=== PATIENT | male | born 1940 | race Caucasian/White ===

== ENCOUNTER 2020-08-10 11:29 | Emergency (ER) | payer MEDICARE, SELFPAY ==
[2020-08-10 11:39] VITALS: BP 132/74; PULSE 77; O2SAT 96
[2020-08-10 11:45] VITALS: BP 132/71; PULSE 79; RESP 12; TEMP 35.7; O2SAT 100; BMI 29.0
--- NOTE | 2020-08-10 11:47 | DI.US.S_ITS ---
PROCEDURE: US SCROTUM INDICATIONS: SEVERE RIGHT TESTICULAR PAIN FOR 1 WEEK. TECHNIQUE: Real-time scanning was performed of the scrotum and testicles, with image documentation. Color and pulse Doppler interrogation was performed of both testicles. COMPARISON: None. FINDINGS: Right: Testicle is asymmetrically enlarged in size at 2.4 x 4.2 x 4.7 cm, and mildly heterogeneous in echotexture. Epididymis is asymmetric in overall size measuring up to 1.4 cm and morphology. No significant hydrocele or varicoceles. Overlying scrotal skin is normal in thickness. Left: Testicle is normal in size at 2.0 x 2.7 x 3.7 cm, and homogeneous in echotexture. Epididymis is normal in overall size measuring up to 0.9 cm in thickness and normal in morphology. No significant hydrocele or varicoceles. Overlying scrotal skin is normal in thickness. Doppler: Color and pulse Doppler demonstrate asymmetric elevated right-sided arterial flow in the testicle and epididymis. IMPRESSION: Asymmetric hyperemia and asymmetric enlargement of both the right testicle and right epididymis indicates likelihood of significant epididymo-orchitis. No discrete mass lesion is found. Dictated by: Ravindra Castaneda M.D. on 08/10/2020 at 12:38 Approved by: Ravindra Castaneda M.D. on 08/10/2020 at 12:46
--- NOTE | 2020-08-10 12:10 | ED.MALEGU ---
HPI - Male Genitourinary General Chief complaint: Urogenital-Male Stated complaint: right swollen testicle Time Seen by Provider: 08/10/20 11:30 Source: patient Mode of arrival: Ambulatory Limitations: no limitations History of Present Illness HPI Narrative: 79M nonsmoker with noncontributory medical history presents today and the chief complaint of R testicle pain and swelling for the last week. He states that is quite tender with any motion and seems to improve he does not move. He denies any history of the same. He denies any dysuria, frequency or urgency. He denies any penile discharge or blood. He is otherwise well and free of complaint denies systemic findings such as nausea, vomiting, fever or chills. He denies exposure to any persons known to have COVID MD Complaint: testicle pain and testicle swelling Onset (ago): day(s) Duration: constant Location: right testicle Severity: severe Quality: aching Relieving factors: rest Exacerbating factors: movement Associated symptoms: Reports denies other symptoms Related Data Previous Rx's Medication Instructions Recorded sulfamethoxazole-trimethoprim 1 tab PO BID 10 Days #20 tab 08/10/20 [Bactrim DS] Allergies Allergy/AdvReac Type Severity Reaction Status Date / Time No Known Drug Allergies Allergy Verified 08/10/20 11:48 Review of Systems Constitutional Constitutional: Denies chills, Denies fatigue, Denies fever(s), Denies frequent falls, Denies lethargy and Denies weakness Eyes Eyes: Denies change in vision, Denies eye discharge, Denies irritation and Denies loss of vision ENT Ears, Nose, Mouth, and Throat: Denies change in voice, Denies dizziness, Denies neck pain, Denies sore throat and Denies throat swelling Cardiovascular Cardiovascular: Denies chest pain, Denies irregular heart rhythm, Denies lightheadedness, Denies palpitations, Denies dyspnea, Denies dyspnea on exertion and Denies orthopnea Respiratory Respiratory: Denies cough, Denies dyspnea, Denies dyspnea on exertion and Denies wheezing Gastrointestinal Gastrointestinal: Denies abdominal pain, Denies change in bowel habits, Denies diarrhea, Denies nausea and Denies vomiting Genitourinary Genitourinary: Reports testicular mass and Reports testicular pain Musculoskeletal Musculoskeletal: Denies neck pain and Denies numbness Integumentary/Breasts Skin/Breast: Denies pruritus, Denies erythema, Denies rash and Denies wounds Neurologic Neurologic: Denies behavioral changes, Denies confusion, Denies dizziness, Denies frequent falls, Denies loss of vision, Denies numbness and Denies weakness Psychiatric Psychiatric: Denies anxiety, Denies behavioral changes, Denies confusion, Denies depression, Denies homicidal ideation and Denies suicidal ideation Endocrine Endocrine: Denies fatigue, Denies flushing and Denies palpitations Hematologic/Lymphatic Hematologic/Lymphatic: Denies easy bruising Allergic/Immunologic Allergic/Immunologic: Denies urticaria, Denies throat swelling and Denies wheezing Patient History Social History Smoking Status: Former smoker Smoking Status: Former smoker Substance Use Type: does not use and marijuana Exam Narrative Exam Narrative: GEN: AOx3 and in mild distress EYES: Pupils are equal, round, and reactive to light and accommodation. Extraoccular muscles are intact bilaterally. There is no subconjunctival hemorrhage or exudate. CHEST: Lungs are clear to auscultation bilaterally and free of wheezes, rales, or rhonchi. Heart rate is regular rhythm, there are no murmurs, clicks, rubs, or gallops. There is no chest wall tenderness. ABD: Abdomen is soft and nontender. There is no guarding or rebound. Bowel sounds are normal in all 4 quadrants. There is no mass or organomegaly. : swollen render right testicle, no erythema. No penile lesions or drainage. EXT: Full painless ROM of all extremities with no loss of sensation or strength. SKIN: Warm, pink, and dry. No erythema or rash Initial Vital Signs Initial Vital Signs: Vital Signs Pulse Rate 77 08/10/20 11:39 Blood Pressure 132/74 08/10/20 11:39 Pulse Oximetry 96 08/10/20 11:39 Course Orders Ordered: ED Orders 08/10/20 11:47 US scrotum Stat 08/10/20 11:48 Urinalysis and Microscopic Stat Vital Signs Vital signs: Vital Signs - 8 hr 08/10/20 11:39 08/10/20 11:45 Temperature 96.3 F L Pulse Rate 77 79 Respiratory Rate 12 Blood Pressure 132/74 132/71 Pulse Oximetry 96 100 MDM - Male Genitourinary Lab Data Labs: Lab Results 08/10/20 Range/Units 11:48 Urine Color Yellow Urine Appearance Cloudy Urine pH 5.5 (4.5-8.0) Ur Specific [place] 1.020 (1.000-1.035) Urine Protein 2+ H (Negative) Urine Glucose (UA) Negative (Negative) g/dL Urine Ketones Trace H (NEGATIVE) Urine Occult Blood Trace-intact (Negative) Urine Nitrate Negative (Negative) Urine Bilirubin 1+ H (NEGATIVE) Ur Bilirubin Confirm Negative (Negative) Urine Urobilinogen 0.2 (0.2) E.U./dL Ur Leukocyte Esterase 2+ H (NEGATIVE) Urine RBC 0-1/hpf (0-5/HPF) Urine WBC >100/hpf H (0-5/HPF) Ur Squamous Epith Cells 0-1 /hpf (0-5/HPF) Amorphous Sediment 1+ Urine Bacteria Moderate (10-30) H (None) Urine Mucus 1+ H (Negative) Ur Culture Indicated? Specimen cultured Imaging Data scrotum: Radiologist's Impression: [address] [id number] ReportSigned Patient: Petr Martin WMR#: [id number]: 3Acct:[id number]/Sex: 79 / MDate of Service: 08/10/20Loc: EDAccession Number: [id number] Procedure: US scrotum Ordering Provider: Alonzo Griffin D.O. PROCEDURE: US SCROTUM INDICATIONS: SEVERE RIGHT TESTICULAR PAIN FOR 1 WEEK. TECHNIQUE: Real-time scanning was performed of the scrotum and testicles, with image documentation. Color and pulse Doppler interrogation was performed of both testicles. COMPARISON: None. FINDINGS: Right: Testicle is asymmetrically enlarged in size at 2.4 x 4.2 x 4.7 cm, and mildly heterogeneous in echotexture. Epididymis is asymmetric in overall size measuring up to 1.4 cm and morphology. No significant hydrocele or varicoceles. Overlying scrotal skin is normal in thickness. Left: Testicle is normal in size at 2.0 x 2.7 x 3.7 cm, and homogeneous in echotexture. Epididymis is normal in overall size measuring up to 0.9 cm in thickness and normal in morphology. No significant hydrocele or varicoceles. Overlying scrotal skin is normal in thickness. Doppler: Color and pulse Doppler demonstrate asymmetric elevated right-sided arterial flow in the testicle and epididymis. IMPRESSION: Asymmetric hyperemia and asymmetric enlargement of both the right testicle and right epididymis indicates likelihood of significant epididymo-orchitis. No discrete mass lesion is found. Dictated by: Ravindar Castaneda M.D. on 08/10/2020 at 12:38 Approved by: Ravindra Castaneda M.D. on 08/10/2020 at 12:46 [facility] Narrative Medical decision making narrative: History, physical and imaging suggest epididymitis with possible orchitis. Patient at very low risk for STD, reports no drainage or discharge. Bactrim chosen over Levaquin due to its improve side effect profile. Return precautions given to the patient, questions answered to his apparent satisfaction Discharge Plan Departure Patient Disposition: Home Clinical Impression: Acute epididymitis Instructions: DI for Epididymitis Activity Restrictions/Additional Instructions: *You have been diagnosed with [testicular pain and swelling from an infection called epididymitis, the ultrasound suggest there might be some involvement of the testicle as well.] *What to do: *Take medications as directed * a given you contact for local Urology, please call tomorrow morning to schedule an appointment. Let them know you were seen in the emergency department and we want you seen in follow-up *Return to ER if you should have any new, worsening or concerning symptoms, such as [worsening pain, fever greater than 101 F, shaking chills or other bothersome symptoms] Prescriptions: New sulfamethoxazole-trimethoprim [Bactrim DS] 800-160 mg tablet 1 tab PO BID 10 Days Qty: 20 RF: 0 Referrals: Hitesh Urias MD [Primary Care Provider] - Luis Lugo MD [Physician] -
--- NOTE | 2020-08-10 12:49 | PC.NURSE ---
Reports decrease appetite. Pain for about 1.5 weeks.
[2020-08-10 12:56] LABS: Appearance Urine UA CLOUDY; Bilirubin Urine UA 1+ (NEGATIVE); Color Urine UA YELLOW; Glucose Urine UA NEGATIVE (Negative); Ketones Urine UA TRACE (NEGATIVE); Leukocyte Esterase Urine UA 2+ (NEGATIVE); Nitrite Urine UA NEGATIVE (Negative); Occult Blood Urine UA TRACE-INTACT (Negative); Protein Urine UA 2+ (Negative); Urobilinogen Urine UA 0.2 E.U./dL (0.2); pH Urine UA 5.5 (4.5-8.0)
[2020-08-10 13:10] LABS: Amorphous Sediment Urine 1+; Bacteria Urine Moderate (10-30); Culture Indicated Urine Specimen Cultured; Ictotest Urine Negative (Negative); Mucus Urine 1+ (Negative); RBC Urine 0-1/HPF (0-5/HPF); Squamous Epithelial Cell Urine 0-1 /HPF (0-5/HPF); WBC Urine >100/HPF (0-5/HPF)
== END 2020-08-10 13:08 | disposition home or self-care (01) ==
PROVIDERS: Emergency Provider Emergency Medicine; PCP Family Medicine
DX: N45.1 Epididymitis (principal)
CPT/HCPCS: 76870; 81001; 87077; 87086; 87186; 99283